=== PATIENT | female | born 1970 | race Caucasian/White ===

== ENCOUNTER → 2021-05-13 13:01 | Outpatient (CLI) | payer BC, SELFPAY ==
[2021-05-13 16:04] LABS: Probe Check PASS; Specimen Processing Control PASS
== END ==
PROVIDERS: PCP Family Medicine; Referring Provider Family Medicine; Visit Provider Family Medicine
DX: Z20.822 Contact with and (suspected) exposure to COVID-19 (principal)
CPT/HCPCS: 87635; C9803; U0005; U0003